=== PATIENT | male | born 1945 | race Caucasian/White ===

== ENCOUNTER 2017-12-13 16:49 | Observation (INO) | payer BC, MEDICARE ==
[2017-12-13] MEDS ORDERED: Al Hydrox/Mg Hydrox/Simet LIQ* 30 ML UDC PO PRN (18:24)
[2017-12-13] MEDS ORDERED: Magnesium Hydroxide LIQ* 30 ML UDC PO PRN (18:24)
[2017-12-13] MEDS ORDERED: Acetaminophen TAB* 325 MG PO PRN (18:24)
[2017-12-13] MEDS ORDERED: Dextrose 50% Syringe 50 ML* 25 GM/50 ML SYRINGE IV PUSH PRN (18:36)
[2017-12-13] MEDS ORDERED: Aspirin 81 mg CHEW TAB* 81 MG TAB.CHEW PO SCH (19:00)
[2017-12-13 19:29] LABS: ABS Basophils 0.1 10^3/ul (0-0.2); ABS Eosinophils 0.1 10^3/ul (0-0.6); ABS Lymphocytes 1.2 10^3/ul (1.0-4.8); ABS Monocytes 0.7 10^3/ul (0-0.8); ABS Neutrophils 5.1 10^3/ul (1.5-7.7); ABS Nucleated RBC 0 10^3/ul; Eosinophil % 1.5 % (0-6); Hematocrit 35 % (42-52); Hemoglobin 11.9 g/dl (14.0-18.0); Lymphocyte % 16.5 % (25-47); Mean Corpuscular HGB Conc 34 g/dl (31-36); Mean Corpuscular Hemoglobin 31 pg (27-31); Mean Corpuscular Volume 93 fL (80-94); Mean Platelet Volume 7.7 um3 (7.4-10.4); Nucleated Red Blood Cells % 0.1; Platelet Count 202 10^3/ul (150-450); Red Cell Distribution Width 13 % (10.5-15); White Blood Count 7.2 10^3/ul (3.5-10.8)
[2017-12-13 19:44] LABS: EGFR Non-African American 28.7 (>60)
[2017-12-13] MEDS ORDERED: Labetalol TAB* 200 MG PO SCH (21:00)
[2017-12-13] MEDS ORDERED: Atorvastatin* 10 MG TAB PO SCH (21:00)
--- NOTE | 2017-12-13 21:18 | HP ---
CC: Dr. Camp; Dr. Ledesma; Dr. Adler * HISTORY AND PHYSICAL: DATE OF ADMISSION: 12/13/17 PRIMARY CARE PROVIDER: Dr. Adler. REASON FOR ADMISSION: Transferred from [facility] for transient right arm numbness and MRI showing an acute stroke. CHIEF COMPLAINT: Right arm numbness. 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 The patient stated that he noted his right arm getting numb and it lasted approximately 1 hour. He denies any visual changes. No headache. His family noted that the patient was more lethargic during that time and he had unsteady gait. The patient continues to have unsteady gait during my evaluation today, but he is not complaining of unsteady gait. The patient had similar symptoms in August of 2017 that resolved spontaneously. An MRI obtained at [facility] showed impression: "Small acute nonhemorrhagic left occipital watershed infarct. Mild microvascular ischemic changes. Mild volume loss." The patient was transferred to our facility for further evaluation of his stroke. PAST MEDICAL HISTORY: 1. Diabetes, type 2. 2. Obesity. 3. Hypertension. 4. Dyslipidemia. 5. History of multiple renal stones, status post lithotripsy in the past. 6. History of chronic renal disease, under the care of Dr. Jacklyn Ledesma from [facility]. The phone number there is [phone]. His stated that the patient has "30% of his kidneys left." 7. History of surgery for stomach ulcer in 1967. 8. History of left rotator cuff surgery. MEDICATIONS: Include: 1. Lotensin 20 mg daily. 2. Nexium 40 mg daily. 3. Ferrous sulfate 325 mg daily. 4. Victoza 0.6 mg subcutaneously daily. 5. Multivitamin 1 tablet daily. 6. Actos 60 mg daily. 7. Lipitor 10 mg daily. 8. Labetalol 200 mg b.i.d. 9. Flomax 0.4 mg daily. The patient received full dose of 325 mg aspirin at [facility]. ALLERGIES: No known drug allergies. FAMILY HISTORY: Positive for mother with history of abdominal aortic aneurysm, who of old age at the age of 87. Father had history of alcoholic pancreatitis and of pancreatitis. SOCIAL HISTORY: The patient is retired. 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 He lives with his , who is his surrogate. He denies any tobacco, alcohol, or drug use. REVIEW OF SYSTEMS: Please see history of present illness. In addition to above mentioned, the patient stated that he occasionally would have unsteady gait and when he gets up from bed, he gets dizzy, which is chronic for the patient. Similar symptoms to the right-sided hand numbness happened in August of 2017 and the patient just "waited it off" until it resolved. The patient denies any recent problems with dyspnea on exertion, shortness of breath, chest pain. All the remaining 12 systems were reviewed with the patient and were otherwise negative. Please note that the patient also has history of recurrent diverticulitis and last bout of diverticulitis he had about a month ago. At that point, he took antibiotics for a total of 3 days and then he discontinued them when he felt better. PHYSICAL EXAMINATION GENERAL: The patient is a very pleasant 72-year-old male, who is in no acute distress. Alert, awake, and oriented x3. VITAL SIGNS: Blood pressure of 156/94, heart rate of 91 and regular, respiratory rate 16, oxygen saturation 98% on room air, temperature 98.3. HEENT: Head: Atraumatic, normocephalic. Eyes: Pupils are equal, reactive to light and accommodation. Oropharynx is clear. Mucosa moist. NECK: Supple. No JVD. No bruits bilaterally. RESPIRATORY: Clear to auscultation bilaterally. CARDIOVASCULAR: Regular rate and rhythm. No murmur. ABDOMEN: Soft, nontender. Bowel sounds are present in all 4 quadrants. EXTREMITIES: There is no edema. Pulses are +2 bilaterally. No clubbing or cyanosis. NEUROLOGIC: Speech is clear. Cranial nerves II through XII are grossly intact. Motor strength is 5/5 bilaterally. The patient is slightly dysmetric on [id number] on the right side. There is no pronator drift. 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 On evaluation of the gait, the patient's gait is unsteady. He limps to the left; it is ataxic and wide. He needs to ambulate with 1 assist. The patient's sensory evaluation noted no gross deficits in sensation. PSYCHIATRIC: Oriented x3 with no evidence of anxiety or depression. DIAGNOSTIC STUDIES/LAB DATA: Obtained at [facility] showed white blood cell count of 8.6, hemoglobin of 13.6, hematocrit of 39, and platelets of 246. Sodium was 140, potassium 4.9, chloride 109, carbon dioxide 19, BUN 38, creatinine of 2.8, glucose of 99. Bilirubin of 0.4, AST of 27, ALT of 39, alkaline phosphatase of 104. Total protein of 7.7. Urinalysis was grossly unremarkable at [facility]. The patient's CT of the brain obtained at [facility] today showed conclusion: "Small hypodense area in the right posterior packer radiata, may represent an age indeterminate small infarct. Further evaluation with an MRI of the brain may be beneficial ." MRI of the brain, conclusion: "Small acute nonhemorrhagic left occipital watershed infarct. Mild microvascular ischemic changes. Mild volume loss." The patient's EKG obtained at [facility] showed sinus rhythm with a heart rate of 79 beats per minute with 1 PVC, no significant ST changes, and left axis deviation. ASSESSMENT AND PLAN: 1. Small acute nonhemorrhagic infarct. At this point, it appears to be related to vascular ischemia and no cardioembolism. The patient is going to be placed on overnight observation. Neuro checks are going to be continued every 2 hours. He is going to be placed on full aspirin on a daily basis. A transthoracic echocardiogram is going to be obtained with bubble study. I will also obtain CT angiogram of the head and neck to evaluate vasculature. Dr. Camp was informed about the patient's admission and a neurology natural remedy consultant will see the patient in the morning. Physical Therapy and Occupational Therapy will see the patient for evaluation. The patient is mildly ataxic and he needs to walk with assistance. 2. In regards to the patient's diabetes, the patient is going to be placed on insulin sliding scale. His remaining medications are going to be stopped for diabetes for the time being. Hemoglobin A1c is going to be obtained. 3. In regards to the patient's dyslipidemia, the patient's atorvastatin is going to be continued. Fasting lipid profile is going to be obtained in the morning. 4. In regards to the patient's chronic kidney disease, it appears to be probably stage 3 to 4, his creatinine at 2.8 today is likely his baseline. I will stop the patient's THOMPSON inhibitor for the time being. Due to his history of marked hypertension, I would prefer to continue labetalol, but the patient has history of dizziness when standing and I am going to hold his labetalol as well that will institute permissive hypertension. 5. For DVT prophylaxis, the patient is going to be placed on heparin subcutaneously. 6. The patient's code status is full and his surrogate is his . TIME SPENT: Approximately 65 minutes was spent on admission of this patient, more than half of that time was spent [id number] with the patient during the interview and physical exam. [id number]/[facility] #: [id number] LIZBET
[2017-12-13] MEDS: Insulin LISPRO* 1 UNITS UNIT SUBCUT SCH (21:42)
[2017-12-13] MEDS: Heparin VIAL(*) 5000 UNITS/ML VIAL (FIVE THOUSAND) SUBCUT SCH (21:52)
[2017-12-14] MEDS: Heparin VIAL(*) 5000 UNITS/ML VIAL (FIVE THOUSAND) SUBCUT SCH ×2 (05:49→14:51)
[2017-12-14] MEDS ORDERED: Omeprazole CAP* 20 MG PO SCH (06:00)
[2017-12-14] MEDS ORDERED: Perflutren Lipid Microsphere* 3 ML VIAL ONE (07:51)
[2017-12-14] MEDS: Insulin LISPRO* 1 UNITS UNIT SUBCUT SCH ×2 (08:40→12:45)
[2017-12-14] MEDS ORDERED: Aspirin TAB* 325 MG PO SCH (09:00)
[2017-12-14] MEDS ORDERED: Tamsulosin CAP* 0.4 MG PO SCH (09:00)
--- NOTE | 2017-12-14 09:21 | ECHO ---
Patient: LEOBARDO BLANCO [facility] Rec#: [id number] : 1945 Date: 12/14/2017 Age: 72y Height: 177 cm / 69.7 in Weight: 87 kg / 191.7 lbs Sex: M BSA: 2.04 Room#: [facility] Admit Date#: 12/13/2017 Type: Inpatient Referring: Shakila Gipson MD Reading: Claire Reed MD Archeologist: Blanca VelazquezRDCS,RDMS Transthoracic Echocardiogram Indication: CVA BP: 105/60 HR: 64 Rhythm: NSR Findings History: HTN, HLD, DM, CKD Technical Comments: The study is technically limited due to poor acoustic windows. Left Ventricle: The left ventricular chamber size is normal. Moderate concentric left ventricular hypertrophy is observed. Global left ventricular wall motion and contractility are within normal limits. The estimated ejection fraction is 50-55%. Abnormal left ventricular diastolic function is observed. Left Atrium: The left atrium is slightly dilated. Right Ventricle: The right ventricular chamber size and systolic function are within normal limits. The right ventricle wall thickness is mildly increased. Right Atrium: The right atrium is mildly dilated. The bubble study is negative.negative contrast in the right atrium. A patent foramen ovale is not demonstrated with color Doppler and agitated contrast. Aortic Valve: The aortic valve is trileaflet. Systolic excursion of the aortic valve is normal. There is evidence of aortic sclerosis without stenosis. There is trace to mild aortic regurgitation. Mitral Valve: The mitral valve leaflets are mildly thickened. There is a trace of mitral regurgitation. There is no evidence of mitral stenosis. Tricuspid Valve: The tricuspid valve leaflets are normal. There is no evidence of tricuspid valve regurgitation. Unable to estimate the right ventricular systolic pressure. Pulmonic Valve: The pulmonic valve structure is not well visualized. There is no evidence of pulmonic valve thickening. There is a trace pulmonic regurgitation. Pericardium: There is no significant pericardial effusion. Aorta: There is borderline dilatation of the ascending aorta. There is mild dilatation of the aortic arch. There is no dilation of the aortic root. Pulmonary Artery: The main pulmonary artery is not well visualized. Venous: The inferior vena cava appears normal in size. There is less than 50% respiratory change in the inferior vena cava dimension. Contrast: Definity was used to optimize study. A total of 2.5 ml was used. Intravenous agitated saline contrast was used to assess intracardiac shunting. Images 1 and 2. Conclusions Moderate concentric left ventricular hypertrophy is observed. Global left ventricular wall motion and contractility are within normal limits. The estimated ejection fraction is 50-55%. Abnormal left ventricular diastolic function is observed. The right ventricle wall thickness is mildly increased and RV systolic function is normal. No evidence of a patent foramen ovale demonstrated with color Doppler and agitated contrast. Negative contrast noted. There is evidence of aortic sclerosis without stenosis. There is trace to mild aortic regurgitation. There is a trace of mitral regurgitation. There is borderline dilatation of the ascending aorta (3.5 cm). There is mild dilatation of the aortic arch (3.6 cm). N prior echo to compare. Measurements Name Value Normal Range RVIDd (AP) 2D 3.2 cm (0.9 - 2.6) RVDdMajor (2D) 2.4 cm (2.2 - 4.4) RAd ISD 4CH 5.4 cm (3.4 - 4.9) RA (A4C)W 3 cm (2.9 - 4.6) IVSd (2D) 1.4 cm (0.6 - 1) LVPWd (2D) 1.7 cm (0.6 - 1) LVIDd (2D) 4.3 cm (3.6 - 5.4) LVIDs (2D) 3.5 cm - LV FS (2D) 18 % (25 - 45) Aortic Annulus 2.5 cm (1.4 - 2.6) Ao root diameter (2D) 3.2 cm (2.1 - 3.5) Ascending Ao 3.5 cm (2.1 - 3.4) Aortic arch 3.6 cm (1.8 - 3.4) LA dimension (AP) 2D 4.6 cm (2.3 - 3.8) LAd ISD 4CH 5.8 cm (2.9 - 5.3) LA ISD 4CH W 4.4 cm (2.5 - 4.5) Name Value Normal Range LA ESV BP (A/L) index 29 ml/m2 - Name Value Normal Range MV E-wave Vmax 0.9 m/sec - MV deceleration time 169 msec - MV A-wave Vmax 0.8 m/sec - MV E:A ratio 1.1 ratio - LV septal e' Vmax 0.08 m/sec - LV lateral e' Vmax 0.08 m/sec - LV E:e' septal ratio 11.3 ratio - LV E:e' lateral ratio 11.3 ratio - Name Value Normal Range AV Vmax 0.9 m/sec - AV VTI 21 cm - AV peak gradient 3.2 mmHg - AV mean gradient 2 mmHg - LVOT Vmax 0.9 m/sec - LVOT VTI 18 cm - LVOT peak gradient 3.2 mmHg - LVOT mean gradient 1 mmHg - AR PHT 581 msec - CALDERON Vmax 0.4 m/sec - Name Value Normal Range RAP 8 mmHg - IVC diameter 2 cm - Name Value Normal Range PV Vmax 0.7 m/sec - PV peak gradient 2 mmHg -
[2017-12-14] MEDS ORDERED: NS 0.9% 1000 ML* 1,000 ML IV SCH (10:15)
--- NOTE | 2017-12-14 10:37 | RAD ---
Indication: Carotid artery stenosis. Real-time sonography of the carotid arteries performed. The right common carotid artery demonstrates intimal wall thickening. Peak systolic velocity of the distal right common carotid artery is 86 cm/s. Peak systolic velocity of the right internal carotid artery is 40 cm/s. The ICA/CC ratio 0.46. Right vertebral artery demonstrates antegrade flow. The left common carotid artery demonstrates intimal wall thickening with plaque in the carotid bulb. Peak systolic velocity of the distal left common carotid artery is 85 cm/s. Peak systolic velocity of the proximal left internal carotid artery is 55 cm/s. The ICA/CC ratio 0.65. Left vertebral artery demonstrates antegrade flow. IMPRESSION: Intimal wall thickening with less than 50% stenosis of both internal carotid arteries.
[2017-12-14 15:18] VITALS: BP 114/72
--- NOTE | 2017-12-14 20:35 | CONS ---
CONSULTATION REPORT: DATE OF CONSULT: 12/14/17 PATIENT OF: Dr. Adler . HISTORY: This is a 72-year-old man being evaluated for new onset of stroke. He presented yesterday with a complaint of right arm numbness, but what he actually means is weakness. He says he did not have power and that he had difficulty holding his arm up. He notes that there was no altered sensation in the arm and there were no problems in his right leg or in his face. He had no visual symptoms. He was lethargic. With this, the symptoms lasted about an hour. He was seen initially at [place] and was found to have a small acute left occipital watershed infarct and was transferred here for further evaluation. Of note, he has had numbness in both feet for more than a year, it is at the soles of both feet and it is getting slowly worse. He has also had some unsteadiness of gait that is slowly worse over the past several months at least. He gets lightheaded sometimes when he gets up too quickly. This seems as best I can tell from his history to be an ongoing problem. PAST MEDICAL HISTORY: He has type 2 diabetes, obesity, hypertension, dyslipidemia, multiple kidney stones, chronic renal disease, surgery for a stomach ulcer in 1967, left rotator cuff injury. MEDICATIONS: Include: 1. Lotensin 20 mg daily. 2. Nexium 40 mg daily. 3. Victoza 0.6 subcutaneously daily. 4. Actos 60 mg daily. 5. Lipitor 10 mg daily. 6. Labetalol 200 b.i.d. 7. Flomax 0.4 daily. 8. He has been started on aspirin. FAMILY HISTORY: His mother had abdominal aortic aneurysm. Father had alcoholic pancreatitis. 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 He does not smoke, drink, or use drugs and lives with his . REVIEW OF SYSTEMS: Negative other than some diverticulitis. He has also been diagnosed with B12 deficiency in the past, but then was after treatment found to have high B12 levels and this has been stopped about 6 months. PHYSICAL EXAM: He is alert and oriented with normal speech and comprehension. Cranial nerves II through XII were intact. Fundi were benign. Motor exam revealed normal tone, strength, coordination. He had an unsteady gait and an unsteady Romberg. Sensation was decreased to position in his feet. Reflexes were 1 and equal with trace to 1 ankle jerks. Chest: Clear. Cardiovascular: Regular rate and rhythm. Abdomen: Soft with positive bowel sounds. DIAGNOSTIC STUDIES/LAB DATA: His MRI scan by report showed a small left occipital stroke. It was not in his paper chart here and was not loaded on to the PACS system downstairs. He had a carotid Doppler that showed some less than 50% stenosis bilaterally. He had transthoracic echo that had a negative bubble study and some moderate left ventricular hypertrophy. Left atrium was slightly dilated. There was no clot seen. His labs included white count 7.2, hematocrit 35, platelet count of 202,000. His LDL was 27. BMP here was significant for BUN of 32, creatinine 2.25. Hemoglobin A1c was 7.4. Of note, the patient also says he had some similar symptoms about 6 to 8 months ago while he was driving in his right arm and this passed quickly. ASSESSMENT AND PLAN: Mr. Giraldo had new onset of stroke yesterday most likely secondary to his vascular risk factors including his diabetes, hypertension, and treated hyperlipidemia. He should be maintained on aspirin 325 daily. I also think he has a peripheral neuropathy that has been longstanding, causing his unsteadiness of gait. This is most likely secondary to his diabetes, but we will check B12, folate, thyroid, and SPEP. It would make sense given his degree of symptoms to check a nerve conduction study, this can be done as an outpatient if he is to go home today. I will be glad to see him back in followup. Thank you for sharing his case. [id number]/[facility] #: [id number] LIZBET
--- NOTE | 2017-12-15 10:32 | DS ---
CC: Dr. Camp; Dr. Adler * DISCHARGE SUMMARY: DATE OF ADMISSION: 12/13/17 DATE OF DISCHARGE: 12/14/17 PRIMARY CARE PROVIDER: Dr. Adler. DISCHARGE DIAGNOSES: 1. Ischemic stroke in the left occipital area. 2. Peripheral neuropathy and unsteady gait due to that. SECONDARY DIAGNOSES: 1. Diabetes type 2. 2. Obesity. 3. Hypertension. 4. Dyslipidemia. 5. History of multiple renal stones. 6. History of chronic kidney disease. 7. History of surgery for gastric ulcer in 1967. 8. History of left rotator cuff surgery. MEDICATIONS AT DISCHARGE: Include: 1. Aspirin 325 mg daily. 2. Atorvastatin 10 mg daily. 3. Nexium 40 mg daily. 4. Ferrous sulfate 325 mg daily. 5. Labetalol 200 mg b.i.d. 6. Victoza 0.6 mg subcutaneously daily. 7. Multivitamin 1 tablet daily. 8. Actos 60 mg daily. 9. Flomax 0.4 mg daily. The patient's benazepril was held due to patient's positive orthostatics and dizziness when standing up. LABORATORY DATA: Studies performed during the hospital stay include: White blood cell count 7.2, hemoglobin 11.9, hematocrit of 35, and platelets of 202 that was documented on 12/13/17. Sodium 139, potassium 4.3, chloride 113, carbon dioxide 19, BUN 32, creatinine 2.25. The patient's cholesterol total was 101, triglycerides 237, LDL of 27, HDL of 26, vitamin B12 of 732, folate of above 20, TSH of 0.38. Serum protein electrophoresis is pending at the time of dictation. The patient's hemoglobin A1c was 7.4. The patient's transthoracic echocardiogram obtained on 12/14/17 showed EF of 50 % to 55% with global left ventricular wall motion and contractility within normal limits and moderate LVH. Abnormal left ventricular diastolic function was observed. There was no evidence of patent foramen ovale. There was borderline dilatation of the ascending aorta at 3.4 cm and mild dilatation of the aortic artery at 3.6 cm. There was no prior echo to compare. Carotid Doppler studies obtained on 12/14/17, impression: Intimal wall thickening with less than 50% stenosis of both internal carotid arteries. Consultations were performed by Dr. Camp from Neurology. HOSPITALIZATION COURSE: Harrison Giraldo is a 72-year-old male, who presented to the hospital complaining of transient right arm numbness and he was noted to have ischemic CVA on MRI obtained at [facility]. His symptoms resolved by the time of admission to our facility where he was transferred to from [place]. Nevertheless, he had mild ataxia and unsteady gait. It was noted that he has peripheral neuropathy during the evaluation by Dr. Camp, who recommended vitamin B12, folate, and TSH levels. All of them were obtained and within normal limits. Serum protein electrophoresis that was also recommended by Neurology to be obtained is still pending at the time of dictation. The patient has a history of chronic kidney disease and that appeared to be at baseline. Please note that the patient was complaining of dizziness while standing up and he was noted to have positive orthostatic hypotension. At this point, his benazepril was discontinued and his labetalol was continued at the discharge only. He was placed on a full dose of aspirin by Neurology for prevention of ischemic CVA in the future. Physical Therapy and Occupational Therapy evaluated the patient and recommended a roller walker for the time being. 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 The patient was advised to follow up with his primary care provider in approximately 4 to 7 days and follow up with Dr. Camp in 4 to 6 weeks. PHYSICAL EXAMINATION: At the time of discharge is unchanged from admission. [id number]/[facility] #: [id number] LIZBET
== END 2017-12-14 16:15 | disposition home or self-care (01) ==
LOC: MEDTELE 18:09 → INTOOBSV 18:09
PROVIDERS: ADMIT Internal Medicine; ATTEND Internal Medicine
DX: I63.9 Cerebral infarction, unspecified (principal); G62.9 Polyneuropathy, unspecified; E11.9 Type 2 diabetes mellitus without complications; E78.5 Hyperlipidemia, unspecified; E66.9 Obesity, unspecified; I12.0 Hypertensive chronic kidney disease with stage 5 chronic kidney disease or end stage renal disease; N18.9 Chronic kidney disease, unspecified; Z79.899 Other long term (current) drug therapy; I51.7 Cardiomegaly
CPT/HCPCS: 36415; 80048; 80061; 82607; 82746; 83036; 84155; 84165; 84443; 85025; 93306; 93880; 96372; A9270-GY; C8929; G0378; G8978-GP-CJ; G8979-GP-CH; G8987-GO-CI; G8988-GO-CI; G8989-GO-CI; J1644